=== PATIENT | male | born 1970 | race Caucasian/White ===

== ENCOUNTER 2022-05-18 10:40 | Emergency (ER) | payer SELFPAY ==
[~2022-05-18] VITALS: Ht 165.1 cm; Wt 75.0 kg
[2022-05-18] MEDS ORDERED: GABA100C MT (12:31)
[2022-05-18 14:31] VITALS: BP 100/63
== END 2022-05-18 14:30 | disposition home or self-care (01) ==
LOC: ER 10:54
DX: G62.9 Polyneuropathy, unspecified (principal); Z59.00 Homelessness unspecified; Z87.891 Personal history of nicotine dependence
CPT/HCPCS: 99283